=== PATIENT | female | born 1995 | race Two or more races ===

== ENCOUNTER 2018-06-20 18:07 | Emergency (ER) | payer BC ==
[~2018-06-20] VITALS: Ht 160 cm; Wt 57.4 kg
[2018-06-20] MEDS ORDERED: IBUPROFEN 200 MG TABLET ONE (18:53)
--- NOTE | 2018-06-20 18:57 | NUR ---
ATTEMPTED TO MEDICATE PATIENT WITH IBUPROFEN BUT PATIENT IN RADIOLOGY.
[2018-06-20] MEDS ORDERED: IBUPROFEN 200 MG TABLET PO ONE (19:00)
--- NOTE | 2018-06-20 19:55 | NUR ---
RE-EVALUATION DONE. PATIENT DISCHARGED WITH PRESCRIPTION AND INSTRUCTION. VERBALIZED UNDERSTANDING.
[2018-06-20 19:56] VITALS: BP 121/78
== END 2018-06-20 19:58 | disposition home or self-care (01) ==
LOC: ED 19:52
DX: S29.011A Strain of muscle and tendon of front wall of thorax, initial encounter (principal); X58.XXXA Exposure to other specified factors, initial encounter; Y93.89 Activity, other specified; Y92.89 Other specified places as the place of occurrence of the external cause; Y99.8 Other external cause status
CPT/HCPCS: 99283

== ENCOUNTER 2020-01-23 22:05 | Inpatient (IN) | payer BC, MEDICAID ==
[~2020-01-23] VITALS: Ht 160 cm; Wt 70.0 kg
[2020-01-23 22:22] VITALS: BP 119/79
[2020-01-23] MEDS ORDERED: MISOPROSTOL 200 MCG TABLET ONE (22:25)
[2020-01-23] MEDS ORDERED: LIDOCAINE 1%, 20ML ONE (22:25)
[2020-01-23] MEDS ORDERED: NEWBORN KIT ONE (22:25)
[2020-01-23] MEDS ORDERED: OXYTOCIN 30U/ 0.9% NaCL 500ML 500 ML ONE (22:26)
[2020-01-23] MEDS ORDERED: TERBUTALINE 1 MG/ML, 1ML SQ PRN (22:30)
[2020-01-23] MEDS ORDERED: D5%-LACTATED RINGERS 1,000 ML IV SCH (22:30)
[2020-01-23] MEDS ORDERED: TERBUTALINE 1 MG/ML, 1ML IVPush PRN (22:30)
[2020-01-23] MEDS ORDERED: LACTATED RINGERS 1,000 ML IVBOLUS PRN (22:30)
[2020-01-23] MEDS ORDERED: ONDANSETRON 2MG/ML, 2ML IVPush PRN (22:30)
[2020-01-23] MEDS ORDERED: OXYTOCIN 30U/ 0.9% NaCL 500ML 500 ML IV ONE (22:30)
[2020-01-23] MEDS ORDERED: FENTANYL/BUPIV./NS/PF 250 ML EPIDCONT SCH (22:30)
[2020-01-23] MEDS ORDERED: EPHEDRINE 50 MG/ML, 1ML IVPush PRN (22:30)
[2020-01-23] MEDS ORDERED: LACTATED RINGERS 1,000 ML IV SCH ×2 (22:30)
[2020-01-23] MEDS ORDERED: FENTANYL PF 100 MCG/2ML IVPush PRN (22:30)
[2020-01-23] MEDS ORDERED: OXYTOCIN 30U/ 0.9% NaCL 500ML 500 ML IV PRN (22:30)
[2020-01-23] MEDS ORDERED: CALCIUM CARBONATE 500 MG TAB.CHEW PO PRN (22:30)
[2020-01-23] MEDS ORDERED: FENTANYL PF 100 MCG/2ML IV PRN (22:30)
[2020-01-23 23:20] LABS: BASOPHILS % (AUTO) 0 % (0-1); EOSINOPHILS % (AUTO) 1 % (1-7); LYMPHOCYTES % (AUTO) 27 % (22-44); MEAN CORPUSCULAR HEMOGLOBIN 25.5 pg (27.0-34.8); MEAN CORPUSCULAR HGB CONC 32.6 g/dL (32.4-35.8); MEAN PLATELET VOLUME 10.6 fL (7.4-10.4); MONOCYTES % (AUTO) 8 % (2-9); NEUTROPHILS % (AUTO) 65 % (42-75); PLATELET COUNT 199 x10^3/uL (130-400); RED CELL DISTRIBUTION WIDTH 16.9 % (9.6-15.2)
[2020-01-23] MEDS ORDERED: FENTANYL/BUPIV./NS/PF 250 ML EPIDCONT ONE (23:21)
[2020-01-23 23:25] LABS: MD NO
[2020-01-23] MEDS ORDERED: BUPIVACAINE 0.25% ONE (23:40)
[2020-01-24] MEDS ORDERED: LACTATED RINGERS 1,000 ML IVBOLUS PRN
[2020-01-24] MEDS ORDERED: NALOXONE 0.4 MG/ML, 1ML IVPush PRN
[2020-01-24] MEDS ORDERED: FENTANYL/BUPIV./NS/PF 250 ML EPIDCONT SCH
[2020-01-24] MEDS ORDERED: EPHEDRINE 50 MG/ML, 1ML IVPush PRN
[2020-01-24] MEDS ORDERED: ONDANSETRON 2MG/ML, 2ML ONE (00:19)
[2020-01-24] MEDS ORDERED: OXYTOCIN 30U/ 0.9% NaCL 500ML 500 ML ONE (01:06)
[2020-01-24] MEDS ORDERED: IBUPROFEN 800 MG TABLET PO PRN (07:00)
[2020-01-24] MEDS ORDERED: METOCLOPRAMIDE 5 MG/ML, 2ML IV PRN (07:00)
[2020-01-24] MEDS ORDERED: BISACODYL 10 MG SUPP PR PRN (07:00)
[2020-01-24] MEDS ORDERED: OXYcodone IR 5MG TABLET PO PRN (07:00)
[2020-01-24] MEDS ORDERED: METHYLERGONOVINE 0.2 MG/ML IM PRN (07:00)
[2020-01-24] MEDS ORDERED: DOCUSATE 100 MG CAPSULE PO PRN (07:00)
[2020-01-24] MEDS ORDERED: GLYCERIN ADULT SUPP PR PRN (07:00)
[2020-01-24] MEDS ORDERED: ONDANSETRON 2MG/ML, 2ML IV PRN (07:00)
[2020-01-24] MEDS ORDERED: CARBOPROST TROMETHAMINE 250 MCG/ML, 1ML IM PRN (07:00)
[2020-01-24] MEDS ORDERED: OXYcodone/APAP 5/325MG TABLET PO PRN (07:00)
[2020-01-24] MEDS ORDERED: MISOPROSTOL 200 MCG TABLET PR PRN (07:00)
[2020-01-24] MEDS ORDERED: SIMETHICONE 80 MG CHEW TAB PO PRN (07:00)
[2020-01-24] MEDS ORDERED: ACETAMINOPHEN 325 MG TABLET PO PRN (07:00)
[2020-01-24] MEDS: OXYTOCIN 30U/ 0.9% NaCL 500ML 500 ML IV SCH ×2 (07:20→17:00)
[2020-01-24] MEDS: LACTATED RINGERS 1,000 ML IV SCH ×3 (08:00→16:00)
[2020-01-24] MEDS ORDERED: IBUPROFEN 600 MG TABLET ONE (08:08)
[2020-01-24 08:45] VITALS: BP 117/77
[2020-01-24] MEDS: PRENATAL VIT/IRON/FA 1 EACH TABLET PO SCH (09:00)
[2020-01-24 12:46] VITALS: BP 119/81
[2020-01-24] MEDS: IBUPROFEN 600 MG TABLET PO PRN (12:48)
[2020-01-24 16:15] VITALS: BP 129/82
[2020-01-24 16:28] LABS: BASOPHILS % (AUTO) 1 % (0-1); EOSINOPHILS % (AUTO) 1 % (1-7); LYMPHOCYTES % (AUTO) 14 % (22-44); MEAN CORPUSCULAR HEMOGLOBIN 25.1 pg (27.0-34.8); MEAN CORPUSCULAR HGB CONC 31.7 g/dL (32.4-35.8); MEAN PLATELET VOLUME 9.6 fL (7.4-10.4); MONOCYTES % (AUTO) 8 % (2-9); NEUTROPHILS % (AUTO) 77 % (42-75); PLATELET COUNT 165 x10^3/uL (130-400); RED BLOOD COUNT 4.46 x10^6/uL (3.82-5.3); RED CELL DISTRIBUTION WIDTH 16.7 % (9.6-15.2)
[2020-01-24 16:34] LABS: MD NO
[2020-01-24 20:00] VITALS: BP 119/81
[2020-01-25] MEDS: OXYTOCIN 30U/ 0.9% NaCL 500ML 500 ML IV SCH (03:00)
[2020-01-25 03:22] VITALS: BP 120/81
[2020-01-25] MEDS: IBUPROFEN 600 MG TABLET PO PRN (05:17)
[2020-01-25] MEDS ORDERED: IBUP-1222 PO (07:07)
[2020-01-25 07:40] VITALS: BP 116/74
[2020-01-25] MEDS: LACTATED RINGERS 1,000 ML IV SCH ×2 (08:00)
[2020-01-25] MEDS: PRENATAL VIT/IRON/FA 1 EACH TABLET PO SCH (09:00)
== END 2020-01-25 12:40 | disposition home or self-care (01) | DRG 807 ==
LOC: LDOP 22:05 → LDIP 22:26 → 2NW 01-24 08:25
PROVIDERS: ADMIT Student in an Organized Health Care Education/Training Program; ATTEND Student in an Organized Health Care Education/Training Program
PROC: 10E0XZZ Delivery of Products of Conception, External Approach (ICD-10-PCS; principal; 2020-01-24)
PROC: 3E0R3BZ Introduction of Anesthetic Agent into Spinal Canal, Percutaneous Approach (ICD-10-PCS; 2020-01-24)
PROC: 00HU33Z Insertion of Infusion Device into Spinal Canal, Percutaneous Approach (ICD-10-PCS; 2020-01-24)
PROC: 10907ZC Drainage of Amniotic Fluid, Therapeutic from Products of Conception, Via Natural or Artificial Opening (ICD-10-PCS; 2020-01-24)
PROC: 0HQ9XZZ Repair Perineum Skin, External Approach (ICD-10-PCS; 2020-01-24)
DX: O70.0 First degree perineal laceration during delivery (principal); Z37.0 Single live birth; Z3A.39 39 weeks gestation of pregnancy; Z82.49 Family history of ischemic heart disease and other diseases of the circulatory system; Z20.828 Contact with and (suspected) exposure to other viral communicable diseases
CPT/HCPCS: 36415; J7121; 85025; 86592; 86850; 86900; 87635; G0378; J2405; J2590; J7120